=== PATIENT | female | born 1965 | race Caucasian/White ===

== ENCOUNTER 2017-12-14 05:10 | Emergency (ER) | payer OTHER ==
[~2017-12-14] VITALS: Ht 165.1 cm; Wt 81.2 kg
[~2017-12-14 05:10] MED LIST: BUSPAR30 MG PO; CLONAZEPAM0.5 MG PO; MICROZIDE12.5 M1 PO; MOTRIN800 MG PO; SERTRALINE HCL100 MG PO; SYNTHROID100 MCG PO; TRAMADOL HCL50 MG PO
[2017-12-14] MEDS ORDERED: PREDNISONE20 MG PO (07:19)
[2017-12-14] MEDS ORDERED: PEPCID40 MG PO (07:19)
[2017-12-14] MEDS ORDERED: ATARAX,VISTARIL25 MG PO (07:19)
[2017-12-14 07:39] VITALS: BP 109/76
[2017-12-15] MEDS ORDERED: RANITIDINE HCL150 MG PO (19:26)
[2017-12-15] MEDS ORDERED: HYDROCHLOROTH12.5 M3 PO (19:28)
[2017-12-15] MEDS ORDERED: TERBINAFINE HC250 MG PO (19:28)
[2017-12-15] MEDS ORDERED: LEVOTHYROXINE100 MCG PO (19:28)
[2017-12-15] MEDS ORDERED: ESZOPICLONE3 MG PO (19:29)
[2017-12-15] MEDS ORDERED: PROAIR HFA8.5 GM IH (19:30)
== END 2017-12-14 07:39 | disposition home or self-care (01) ==
LOC: EME 05:10
DX: L50.9 Urticaria, unspecified (principal); T47.0X6A Underdosing of histamine H2-receptor blockers, initial encounter; Z91.128 Patient's intentional underdosing of medication regimen for other reason; J45.909 Unspecified asthma, uncomplicated; F32.9 Major depressive disorder, single episode, unspecified; F17.200 Nicotine dependence, unspecified, uncomplicated; Z88.6 Allergy status to analgesic agent; Z88.0 Allergy status to penicillin
CPT/HCPCS: 99281; 99285; J1200; J2930; J7512; S0028

== ENCOUNTER 2017-12-15 15:01 | Observation (INO) | payer OTHER ==
[~2017-12-15] VITALS: Ht 165.1 cm; Wt 79.7 kg
[~2017-12-15 15:01] MED LIST changes: +ATARAX,VISTARIL25 MG PO; +PEPCID40 MG PO; +PREDNISONE20 MG PO
[2017-12-15 16:13] LABS: BASOPHIL (%) 0.1 % (0-1); EOSINOPHIL (%) 0 % (0-5); HEMATOCRIT 38.1 % (36.0-46.0); HEMOGLOBIN 12.8 G/DL (11.9-15.5); IMMATURE GRANULOCYTE (%) 0.5 % (0.0-0.7); LYMPHOCYTE (%) 8.2 % (15-42); LYMPHOCYTE COUNT 1.2 K/uL (1.0-2.8); MCH 30.5 PG (29.0-34.0); MCHC 33.6 G/DL (30.0-36.0); MCV 90.9 FL (83-99); MONOCYTE (%) 3.4 % (3-12); MONOCYTE COUNT 0.5 K/uL (0-0.8); NEUTROPHIL (%) 87.8 % (45-76); NEUTROPHIL COUNT 13.1 K/uL (1.8-6.4); PLATELET COUNT 319 K/uL (156-360); RBC DIS.WIDTH-CV 13.1 % (11.8-14.6); RBC DIS.WIDTH-SD 43.8 % (39-53); RED BLOOD COUNT 4.19 M/uL (3.80-5.20); WHITE BLOOD COUNT 14.9 K/uL (4.1-10.2)
[2017-12-15 16:24] LABS: CHLORIDE 106 mEq/L (99-109); POTASSIUM 3.5 mEq/L (3.7-5.4); SODIUM 143 mEq/L (136-147)
[2017-12-15 16:26] LABS: GLUCOSE 92 mg/dL (70-99)
[2017-12-15 16:27] LABS: TOTAL PROTEIN 6.5 g/dL (6.4-8.3)
[2017-12-15 16:28] LABS: TOTAL BILIRUBIN 0.3 mg/dL (0.0-1.0)
[2017-12-15 16:30] LABS: ALKALINE PHOSPHATASE 85 IU/L (3-129); CREATININE 0.7 mg/dL (0.6-1.3); GFR ESTIMATE (CALCULATED) > 59 mL/min/
[2017-12-15 16:31] LABS: UREA NITROGEN (BUN) 8 mg/dL (9-23)
[2017-12-15 16:32] LABS: AST (GOT) 15 IU/L (2-34)
[2017-12-15 16:33] LABS: ALT (GPT) 18 IU/L (3-49)
[2017-12-15 16:34] LABS: TROP-I INTERPRETATION NEGATIVE; TROPONIN-I < 0.01 ng/mL (0.0-0.30)
[2017-12-15 16:58] LABS: ERTH.SED.RATE 6 MM/HR (0-30)
[2017-12-15 17:09] LABS: APPEARANCE CLEAR ((CLEAR)); BILIRUBIN NEGATIVE; BLOOD NEGATIVE; COLOR STRAW ((YELLOW)); GLUCOSE (STRIP) NEGATIVE; KETONES NEGATIVE; LEUKOCYTES NEGATIVE; NITRITE NEGATIVE; PROTEIN (STRIP) NEGATIVE; SPECIFIC GRAVITY 1.004 (1.000-1.030); UROBILINOGEN 0.2 MG/DL (0.2-1.0)
[2017-12-15 17:18] LABS: AMPHETAMINE NEGATIVE (500 ng/mL); BARBITURATES NEGATIVE (200 ng/mL); BENZODIAZEPINES NEGATIVE (150 ng/mL); BUPRENORPHINE NEGATIVE (10 ng/mL); COCAINE NEGATIVE (150 ng/mL); METHADONE NEGATIVE (200 ng/mL); METHAMPHETAMINE NEGATIVE (500 ng/mL); OPIATES (MORPHINE) NEGATIVE (100 ng/mL); OXYCODONE NEGATIVE (100 ng/mL); PHENCYCLIDINE NEGATIVE (25 ng/mL); PROPOXYPHENE NEGATIVE (300 ng/mL); THC CANNABINOIDS NEGATIVE (50 ng/mL); TRICYCLIC ANTIDEPRESSANTS NEGATIVE (300 ng/mL)
[2017-12-15 17:50] LABS: THYROTROPIN (TSH) 1.6 MIU/L (0.4-5.5)
[2017-12-15 18:09] LABS: SOURCE SWAB
[2017-12-15] MEDS ORDERED: RANITIDINE HCL150 MG PO (19:26)
[2017-12-15] MEDS ORDERED: TERBINAFINE HC250 MG PO (19:28)
[2017-12-15] MEDS ORDERED: HYDROCHLOROTH12.5 M3 PO (19:28)
[2017-12-15] MEDS ORDERED: LEVOTHYROXINE100 MCG PO (19:28)
[2017-12-15] MEDS ORDERED: ESZOPICLONE3 MG PO (19:29)
[2017-12-15] MEDS ORDERED: PROAIR HFA8.5 GM IH (19:30)
[2017-12-15 21:32] VITALS: BP 145/90
[2017-12-15 23:54] VITALS: BP 135/77
[2017-12-15 23:56] LABS: TROP-I INTERPRETATION NEGATIVE; TROPONIN-I < 0.01 ng/mL (0.0-0.30)
[2017-12-15 23:59] LABS: HDL CHOLESTEROL 43 MG/DL (Desirable>=50); LDL CHOLESTEROL 110 mg/dL (Desirable<100); NON-HDL CHOLESTEROL 140 mg/dL (Desirable<160); TOTAL CHOLESTEROL 183 mg/dL (Desirable<200); TRIGLYCERIDES 151 MG/DL (Normal: <150)
[2017-12-16 03:39] VITALS: BP 130/79
[2017-12-16 05:55] LABS: CREATININE 0.6 MG/DL (0.6-1.3); GFR ESTIMATE (CALCULATED) > 59 mL/min/; GLUCOSE 125 mg/dL (70-99); UREA NITROGEN (BUN) 12 mg/dL (9-23)
[2017-12-16 06:29] LABS: CHLORIDE 111 MEQ/L (99-109); SODIUM 143 MEQ/L (136-147)
[2017-12-16 06:31] LABS: POTASSIUM 4.3 MEQ/L (3.7-5.4)
[2017-12-16 07:29] VITALS: BP 127/78
[2017-12-16 12:58] LABS: HEMOGLOBIN A1c (GLYCOHEMOGLOB) 5.4 % (Below 5.7)
[2017-12-16] MEDS ORDERED: PROAIR HFA8.5 GM IH (13:28)
[2017-12-16] MEDS ORDERED: IPRATR-ALBUTEROL3 ML IH (13:28)
[2017-12-16] MEDS ORDERED: ADVAIR 250/501 DISK IH (13:28)
[2017-12-16 14:31] LABS: BASOPHIL (%) 0.1 % (0-1); EOSINOPHIL (%) 0 % (0-5); HEMATOCRIT 36.3 % (36.0-46.0); LYMPHOCYTE (%) 9.5 % (15-42); LYMPHOCYTE COUNT 1.3 K/uL (1.0-2.8); MCH 29.9 PG (29.0-34.0); MCHC 33.1 G/DL (30.0-36.0); MCV 90.5 FL (83-99); MONOCYTE (%) 4.1 % (3-12); MONOCYTE COUNT 0.6 K/uL (0-0.8); NEUTROPHIL (%) 85.3 % (45-76); NEUTROPHIL COUNT 11.6 K/uL (1.8-6.4); PLATELET COUNT 353 K/uL (156-360); RBC DIS.WIDTH-CV 12.9 % (11.8-14.6); RBC DIS.WIDTH-SD 42.9 % (39-53); RED BLOOD COUNT 4.01 M/uL (3.80-5.20); WHITE BLOOD COUNT 13.5 K/uL (4.1-10.2)
[2017-12-16] MEDS ORDERED: LIPITOR40 MG PO (16:16)
[2017-12-16] MEDS ORDERED: PLAVIX75 MG PO (16:16)
[2017-12-16 16:28] VITALS: BP 142/77
== END 2017-12-16 19:44 | disposition home or self-care (01) ==
LOC: EME 15:01 → 5WEST 20:10 → EDOF 20:10 → ENRESERV 20:17 → 5WEST 21:08
PROVIDERS: Emergency Medicine; Hospitalist
DX: T78.40XA Allergy, unspecified, initial encounter (principal); D72.829 Elevated white blood cell count, unspecified; I10 Essential (primary) hypertension; E03.9 Hypothyroidism, unspecified; F51.04 Psychophysiologic insomnia; R20.0 Anesthesia of skin; R07.9 Chest pain, unspecified; F17.210 Nicotine dependence, cigarettes, uncomplicated; Z88.0 Allergy status to penicillin
CPT/HCPCS: 70450; 70551; 71046; 80048; 80053; 80061; 81003; 83036; 84443; 84484; 85025; 85027; 85652; 87210; 87491; 87591; 93005; 93306; 93880; 99202; 99281; 99285; G0378; J1200; J1650; J1885; J2060; J2920; J2930; J7030; S0028

== ENCOUNTER 2018-02-22 22:50 | Emergency (ER) | payer OTHER ==
[~2018-02-22] VITALS: Ht 165.1 cm; Wt 82.9 kg
[~2018-02-22 22:50] MED LIST changes: +ADVAIR 250/501 DISK IH; +ESZOPICLONE3 MG PO; +HYDROCHLOROTH12.5 M3 PO; +IPRATR-ALBUTEROL3 ML IH; +LEVOTHYROXINE100 MCG PO; +LIPITOR40 MG PO; +PLAVIX75 MG PO; +PROAIR HFA8.5 GM IH; +RANITIDINE HCL150 MG PO; +TERBINAFINE HC250 MG PO
[2018-02-22 23:15] LABS: HEMATOCRIT 39.2 % (36.0-46.0); HEMOGLOBIN 13.3 G/DL (11.9-15.5); MCH 30.5 PG (29.0-34.0); MCHC 33.9 G/DL (30.0-36.0); MCV 89.9 FL (83-99); PLATELET COUNT 331 K/uL (156-360); RBC DIS.WIDTH-CV 12.6 % (11.8-14.6); RBC DIS.WIDTH-SD 41.4 % (39-53); RED BLOOD COUNT 4.36 M/uL (3.80-5.20); WHITE BLOOD COUNT 10.8 K/uL (4.1-10.2)
[2018-02-22 23:33] LABS: CHLORIDE 104 mEq/L (99-109); POTASSIUM 3.5 mEq/L (3.7-5.4); SODIUM 140 mEq/L (136-147)
[2018-02-22 23:35] LABS: GLUCOSE 88 mg/dL (70-99)
[2018-02-22 23:39] LABS: CREATININE 0.7 mg/dL (0.6-1.3); GFR ESTIMATE (CALCULATED) > 59 mL/min/; UREA NITROGEN (BUN) 16 mg/dL (9-23)
[2018-02-22 23:41] LABS: TROP-I INTERPRETATION NEGATIVE; TROPONIN-I < 0.01 ng/mL (0.0-0.30)
[2018-02-23 00:24] LABS: ALBUMIN 4.3 g/dL (3.2-4.8)
[2018-02-23 00:29] LABS: TOTAL BILIRUBIN 0.2 mg/dL (0.0-1.0)
[2018-02-23 00:30] LABS: ALKALINE PHOSPHATASE 99 IU/L (3-129)
[2018-02-23 00:32] LABS: AST (GOT) 16 IU/L (2-34); DIRECT BILIRUBIN 0.1 mg/dL (0.0-0.3)
[2018-02-23 00:33] LABS: ALT (GPT) 21 IU/L (3-49)
[2018-02-23 00:34] LABS: LIPASE 28 U/L (1.0-51.0)
[2018-02-23 02:46] LABS: TROP-I INTERPRETATION NEGATIVE; TROPONIN-I < 0.01 ng/mL (0.0-0.30)
[2018-02-23 02:56] VITALS: BP 116/88
== END 2018-02-23 02:57 | disposition home or self-care (01) ==
LOC: EME 22:50
PROVIDERS: Emergency Medicine
DX: R07.89 Other chest pain (principal); F17.200 Nicotine dependence, unspecified, uncomplicated; D64.9 Anemia, unspecified; J45.909 Unspecified asthma, uncomplicated; F32.9 Major depressive disorder, single episode, unspecified; Z88.6 Allergy status to analgesic agent; Z88.0 Allergy status to penicillin
CPT/HCPCS: 71046; 80048; 80076; 83690; 84484; 85027; 93005; 99281; 99285